=== PATIENT | female | born 1985 | race Caucasian/White ===

== ENCOUNTER 2017-12-14 06:01 | Inpatient (IN) | payer BC ==
[2017-12-14] MEDS ORDERED: NS 0.9% 100 ML* 100 ML with ceFOXitin(*) 2 GM IVPB ONE ×2 (07:15)
[2017-12-14] MEDS ORDERED: Sodium Citrate/Citric Acid* 15 ML UDC ONE (07:20)
[2017-12-14] MEDS ORDERED: Bupivacaine-MPF SPINAL* 7.5 MG/2 ML AMP ONE (07:27)
[2017-12-14] MEDS ORDERED: Morphine PF AMP (0.5MG/ML)* 5 MG/10 ML AMP ONE (07:27)
[2017-12-14] MEDS ORDERED: fentaNYL* 50 MCG/ML 2 ML VIAL (100 MCG VIAL) ONE (08:31)
[2017-12-14] MEDS ORDERED: Ondansetron INJ* 2 MG/ML VIAL IV PRN ×2 (08:40→08:41)
[2017-12-14] MEDS ORDERED: DiMENhydriNATE IV* 50 MG/ML VIAL IV PUSH PRN ×2 (08:40→08:41)
[2017-12-14] MEDS ORDERED: Naloxone* 0.4 MG/ML 1 ML VIAL IV PRN ×2 (08:40→08:41)
[2017-12-14] MEDS ORDERED: diPHENhydraMINE IV* 50 MG/ML 1 ml VIAL (BENADRYL) IV PRN ×2 (08:40→08:41)
[2017-12-14] MEDS ORDERED: fentaNYL* 50 MCG/ML 2 ML VIAL (100 MCG VIAL) IV PRN (08:40)
[2017-12-14] MEDS ORDERED: Nalbuphine* 20 MG/ML 1 ML VIAL IV PRN ×3 (08:40→08:41)
[2017-12-14] MEDS ORDERED: Naloxone* 2 MG in NS 0.9% 250 ML* 250 ML IV PRN (08:41)
[2017-12-14] MEDS ORDERED: oxyCODONE/Acetamin 5/325 MG* TAB PO PRN (08:41)
[2017-12-14] MEDS ORDERED: HYDROcodone/ACETAMIN 5-325 MG* 1 TAB PO PRN (08:41)
[2017-12-14] MEDS ORDERED: Scopolamine 1.5 mg* PATCH TRANSDERM PRN (08:41)
[2017-12-14] MEDS ORDERED: Ketorolac INJ* 30 MG/ML 1 ML VIAL ONE (08:45)
[2017-12-14] MEDS ORDERED: Atropine 1MG/ML INJ* 1 ML VIAL ONE (08:51)
[2017-12-14] MEDS ORDERED: Phenylephrine IV* 40 MCG/ML 10 ML SYRINGE ONE (08:51)
[2017-12-14] MEDS ORDERED: Witch Hazel PAD* JAR TOPICAL PRN (09:41)
[2017-12-14] MEDS ORDERED: Dibucaine 1% 28.35 GM TUBE PR PRN (09:41)
[2017-12-14] MEDS ORDERED: Ibuprofen TAB* 600 MG PO PRN (09:41)
[2017-12-14] MEDS ORDERED: Acetaminophen TAB* 325 MG PO PRN (09:41)
[2017-12-14] MEDS ORDERED: Glycerin ADULT SUPP PR PRN (09:41)
[2017-12-14] MEDS ORDERED: Oxytocin in LR* 20 UNITS/1,000 ML BAG IVPB SCH (10:00)
[2017-12-14] MEDS ORDERED: Nalbuphine* 20 MG/ML 1 ML VIAL ONE (10:37)
[2017-12-14] MEDS: Simethicone TAB* 80 MG TAB.CHEW PO SCH ×3 (12:55→21:35)
[2017-12-14] MEDS: Docusate CAP* 100 MG PO SCH ×2 (12:55→21:35)
[2017-12-14] MEDS: Ketorolac INJ* 30 MG/ML 1 ML VIAL IV PRN ×2 (15:13→21:34)
--- NOTE | 2017-12-14 16:16 | OP ---
Operative Report - Blank - Operative Report Date of Operation: 12/14/17 Note: EBL : 600 Fluids 2000 cc crystalloid Findings VTX/ female/ wgt 9#2oz
--- NOTE | 2017-12-15 00:30 | OP ---
OPERATIVE REPORT: DATE OF OPERATION: 12/14/17 DATE OF : 85 SURGEON: Madison Grubbs MD ENTRY WRITER: Dr. Solano ANESTHESIOLOGIST: Dr. Perla. ANESTHESIA: Spinal. PRE-OP DIAGNOSIS: Desires repeat section at 39-0/7th weeks, desires permanent sterility. POST-OP DIAGNOSIS: OPERATIVE PROCEDURE: Repeat low transverse section and bilateral tubal ligation with fimbriectomy. ESTIMATED BLOOD LOSS: 600 cc. URINE OUTPUT: 25 mL of clear yellow urine. FLUIDS: 2000 cc of crystalloid. FINDINGS: Revealed a vertex female infant, 9 pounds 2 ounces. Apgars 9 at 1 minute and 9 at 5 minutes. Nuchal cord x2, no meconium. Placenta manually extracted, three vessel cord and intact. There were adhesions noted of omentum to abdominal wall, taken down sharply. Uterine cavity was without evidence of retained placental tissue or membranes. Normal appearing tubes and ovaries bilaterally. SPECIMEN: Bilateral distal tube with fimbriae. COMPLICATIONS: None apparent. DISPOSITION: Stable to recovery room. DESCRIPTION OF PROCEDURE: Patient was placed in the dorsal lithotomy position. The abdomen was prepped and draped in a sterile standard fashion. Patient was identified with the universal protocol. After confirming excellent anesthesia with testing to level, incision was made with scalpel. This was carried down through to the fascia. Fascia was scored in the midline, extended laterally and inferiorly using Wheeler scissors. The peritoneum was entered with dissection and separation of the fascia from the rectus muscle. The peritoneal incision was extended bluntly. There were some adhesions of the peritoneum to the lower part of the uterine segment. These were taken down bluntly and bladder blade was inserted. The lower uterine segment was tented up with Allis. Incision was made with scalpel. This was carried down through to membranes. Clear fluid was noted in membranes. The incision was extended bluntly. The was delivered vertex. Nuchal cord x2 reduced. Anterior then posterior shoulder delivered. Baby was delivered direct OP. Cord was allowed to pulse for 60 seconds and then cord was then clamped and the infant was handed off to awaiting probate judge. Appropriate cord blood was obtained. Placenta was then manually extracted and noted to be intact. The uterus was exteriorized, wrapped in warm moist laparotomy, and the incision was explored and noted to be free of any retained membranes or placental tissue. The incision itself was then reapproximated in 2 layers, first layer running locked, second layer running imbricated for complete hemostasis. At that point, attention was then turned to the bilateral tubal ligation with fimbriectomy. The left was approached first. [place] was placed on the fallopian tubes. The fimbriae was identified. A Madelin was placed across the fallopian tube and fimbriae. A 0 Vicryl free tie suture was applied, and a second ligature suture and a 2-0 Vicryl in a Heney fashion for complete occlusion of the pedicle. The portion of the tube was then excised. Afferent end of the tube was noted to be hemostatic and the pedicle was noted to be hemostatic. The same technique was applied on to the right side. Both portions of tube and fimbriae were sent to Pathology. The uterus was then returned intraabdominally. Colic gutters were lavaged. Hemostasis was assured. The peritoneum was clamped with Madelin's. There was a small adhesion of the omentum to the peritoneal wall, creating an area of potential disruption with bowel, and this was taken down sharply and noted to be hemostatic. The peritoneum was then reapproximated using 3-0 Vicryl in a running fashion. Subfascial area was visualized and hemostasis assured with Bovie coagulation. The fascia itself was reapproximated using 0 Vicryl x2 in a running fashion. Subcu was lavaged. Hemostasis assured with Bovie coagulation and the subcuticular layer was reapproximated as it was created in 2 cm using a 2-0 Vicryl in an interrupted fashion. The skin was reapproximated using Monocryl in a subcuticular fashion. Mastisol and Steris were applied. All sponge, needle, instrument and blade counts were correct throughout the case. The patient tolerated the procedure well and went to recovery room in stable condition. [id number]/[facility] #: [id number] [facility] [facility]ISION[facility]
[2017-12-15] MEDS: oxyCODONE/Acetamin 5/325 MG* TAB PO PRN ×6 (02:01→23:50)
[2017-12-15 06:15] LABS: ABS Basophils 0.1 10^3/ul (0-0.2); ABS Eosinophils 0 10^3/ul (0-0.6); ABS Lymphocytes 2.8 10^3/ul (1.0-4.8); ABS Monocytes 0.9 10^3/ul (0-0.8); ABS Neutrophils 9.4 10^3/ul (1.5-7.7); ABS Nucleated RBC 0 10^3/ul; Eosinophil % 0.3 % (0-6); Hematocrit 27 % (35-47); Hemoglobin 9.3 g/dl (12.0-16.0); Lymphocyte % 21.2 % (25-47); Mean Corpuscular HGB Conc 34 g/dl (31-36); Mean Corpuscular Hemoglobin 28 pg (27-31); Mean Corpuscular Volume 83 fL (80-97); Nucleated Red Blood Cells % 0; Platelet Count 158 10^3/ul (150-450); Red Cell Distribution Width 16 % (10.5-15); White Blood Count 13.3 10^3/ul (3.5-10.8)
[2017-12-15] MEDS: Levothyroxine TAB* 25 MCG TAB PO SCH (06:40)
[2017-12-15] MEDS: Ketorolac INJ* 30 MG/ML 1 ML VIAL IV PRN (06:46)
[2017-12-15] MEDS: Ferrous Gluconate TAB* 324 MG TAB PO SCH ×2 (08:29→22:06)
[2017-12-15] MEDS: Simethicone TAB* 80 MG TAB.CHEW PO SCH ×3 (08:30→22:06)
[2017-12-15] MEDS: Docusate CAP* 100 MG PO SCH ×3 (08:30→22:06)
[2017-12-15] MEDS: Prenatal Vitamin TAB PO SCH (08:30)
[2017-12-15] MEDS: Ibuprofen TAB* 600 MG PO PRN ×2 (12:49→19:41)
[2017-12-16] MEDS: Ibuprofen TAB* 600 MG PO PRN ×2 (04:43→10:29)
[2017-12-16] MEDS: Levothyroxine TAB* 25 MCG TAB PO SCH (06:35)
[2017-12-16] MEDS: Simethicone TAB* 80 MG TAB.CHEW PO SCH ×2 (07:47→08:18)
[2017-12-16 07:51] VITALS: BP 117/70
[2017-12-16] MEDS: Ferrous Gluconate TAB* 324 MG TAB PO SCH (08:18)
[2017-12-16] MEDS: Prenatal Vitamin TAB PO SCH (08:18)
[2017-12-16] MEDS: oxyCODONE/Acetamin 5/325 MG* TAB PO PRN (08:18)
[2017-12-16] MEDS: Docusate CAP* 100 MG PO SCH (08:18)
[2017-12-17] MEDS ORDERED: Scopolamine PATCH Remove* 1 NOTE MISC PATCH OFF PRN (08:43)
== END 2017-12-16 10:51 | disposition home or self-care (01) | DRG 540 ==
LOC: MCHOB 06:01
PROVIDERS: ADMIT Obstetrics & Gynecology; ATTEND Obstetrics & Gynecology
PROC: 0UB70ZZ Excision of Bilateral Fallopian Tubes, Open Approach (ICD-10-PCS; 2017-12-14)
PROC: 0DNW0ZZ Release Peritoneum, Open Approach (ICD-10-PCS; 2017-12-14)
PROC: 10D00Z1 Extraction of Products of Conception, Low, Open Approach (ICD-10-PCS; principal; 2017-12-14 07:45)
DX: O34.211 Maternal care for low transverse scar from previous cesarean delivery (principal); O99.284 Endocrine, nutritional and metabolic diseases complicating childbirth; E03.9 Hypothyroidism, unspecified; O99.89 Other specified diseases and conditions complicating pregnancy, childbirth and the puerperium; N73.6 Female pelvic peritoneal adhesions (postinfective); O69.81X0 Labor and delivery complicated by cord around neck, without compression, not applicable or unspecified; Z3A.39 39 weeks gestation of pregnancy; Z37.0 Single live birth
CPT/HCPCS: 36415; 85025; 88302; A9270-GY; J0461; J0694; J1200; J1885; J2300; J3010